=== PATIENT | female | born 1960 | race Caucasian/White ===

== ENCOUNTER → 2018-05-06 | Outpatient (CLI) | payer MEDICARE, MEDICAID ==
[~2018-05-06] MED LIST: ALBUTEROL0.83 MG/ML IH; ALBUTEROL1.25 MG/3 IH; BONIVA150 MG PO; BONIVA2.5 MG PO; CALCIUM 600MG+D1 TAB PO; DALIRESP500 MCG PO; DIFLUCAN 100MG100 MG PO; FISH OIL500 MG PO; LEVOXYL0.088 MG PO; MOBIC15 MG PO; MULTI VITAMINS1 TAB PO; MULTIPLE VITAMI1 CAP PO; NEXIUM 40MG40 MG PO; PRIL40 PO; PROAIR HFA0.09 MG/AC IH; RT ADVAIR 228 DISKUS IH; RT SPIRIVA18 MCG IH; SINGULAIR 110 MG/TAB PO; THEO-24 20200 MG/CAP PO; XANAX .25M0.25 MG/TA PO; ZOCOR 20MG20 MG PO
[2018-05-06 12:39] LABS: CALCIUM 9.2 mg/dL (8.4-10.2); CREATININE, serum 0.73 mg/dL (0.52-1.25); POTASSIUM 3.7 mmol/L (3.4-5.0)
== END ==
LOC: COL.LAB 12:03
PROVIDERS: Internal Medicine Pulmonary Disease
DX: J44.9 Chronic obstructive pulmonary disease, unspecified (principal)

== ENCOUNTER 2018-08-09 13:42 | Emergency (ER) | payer MEDICARE, MEDICAID ==
[~2018-08-09] VITALS: Ht 162.6 cm; Wt 68.2 kg
[2018-08-09 15:03] LABS: BASO # 0.1 (0.0-0.2); BASO % 0.6 % (0.0-2.0); EOS # 0.2 (0.0-0.7); EOS % 1.1 % (0-4.0); GRAN # 12.9 (1.4-6.5); HEMATOCRIT 38.2 % (37.0-47.0); HEMOGLOBIN 12.8 g/dl (12.5-16.0); LYMPH # 1.9 (1.2-3.4); LYMPH % 11.6 % (20.0-51.0); MEAN CELL VOLUME 87 fl (80.0-100.0); MEAN CORPUSCULAR HEMOGLOBIN 29 pg (27.0-31.0); MEAN CORPUSCULAR HGB CONC 34 g/dl (33.0-37.0); MEAN PLATELET VOLUME 10.8 fl (7.4-10.4); MONO % 6.3 % (1.7-9.3); PLATELET COUNT 283 K/mm3 (130-400); RED BLOOD COUNT 4.39 M/mm3 (4.10-5.30); REDCELL DISTRIBUTION WIDTH-CV 12.4 % (11.5-14.5)
[2018-08-09] MEDS ORDERED: DALIRESP500 MCG PO (15:05)
[2018-08-09 15:14] LABS: ALBUMIN 4.1 gm/dL (3.5-5.0); BILIRUBIN,TOTAL 0.4 mg/dL (0.0-1.0); CALCIUM 9.1 mg/dL (8.4-10.2); CREATININE, serum 0.81 mg/dL (0.52-1.25); POTASSIUM 3.7 mmol/L (3.4-5.0); TOTAL PROTEIN 7.4 gm/dL (6.4-8.2)
[2018-08-09 16:27] LABS: COLLECTION METHOD CLEAN CATCH
[2018-08-09 16:41] LABS: PH 8 (5-8); SQUAMOUS EPITHELIAL 0-2 /hpf; URINE APPEARANCE Clear; URINE BACTERIA Rare /hpf; URINE BILIRUBIN Negative (NEGATIVE); URINE BLOOD Negative (NEGATIVE); URINE COLOR Yellow; URINE GLUCOSE Negative (NEGATIVE); URINE KETONE Negative (NEGATIVE); URINE LEUKOCYTE ESTERASE Trace (NEGATIVE); URINE NITRATE Negative (NEGATIVE); URINE PROTEIN(semi-quant) Negative (NEGATIVE); URINE RBC 0-2 /hpf; URINE UROBILINOGEN Negative (NEGATIVE)
[2018-08-09 17:09] VITALS: TEMP 99.2
[2018-08-09] MEDS ORDERED: LEVAQUIN 750MG750 M1 PO (18:05)
[2018-08-09] MEDS ORDERED: NORCO 325 MG-51 TAB PO (18:59)
[2018-08-09 19:25] VITALS: BP 119/63; PULSE 90
== END 2018-08-09 19:25 | disposition home or self-care (01) ==
LOC: COL.ER 13:42
PROVIDERS: Physician Assistant
DX: J44.9 Chronic obstructive pulmonary disease, unspecified (principal); J18.9 Pneumonia, unspecified organism; Z79.51 Long term (current) use of inhaled steroids; Z87.891 Personal history of nicotine dependence; Z88.0 Allergy status to penicillin; Z98.51 Tubal ligation status
CPT/HCPCS: J1100; J1956; J3010; J7030; J7040

== ENCOUNTER 2018-09-30 10:13 | Day surgery (SDC) | payer MEDICARE, MEDICAID ==
[~2018-09-30] VITALS: Ht 162.7 cm; Wt 68.2 kg
[2018-09-30] VITALS (10 sets, daily range): BP systolic 121–154; BP diastolic 48–78; PULSE 71–81; TEMP 98.4
[~2018-09-30 10:13] MED LIST changes: -00186-0370-20 IH; -ASPIRIN E.C. 8181 MG PO; -CENTRUM SILVER1 CTB PO; -PROBIOTIC FORMU1 CAP PO
[2018-09-30] MEDS ORDERED: 00186-0370-20 IH (10:25)
[2018-09-30] MEDS ORDERED: CENTRUM SILVER1 CTB PO (10:25)
[2018-09-30] MEDS ORDERED: ASPIRIN E.C. 8181 MG PO (10:26)
[2018-09-30] MEDS ORDERED: PROBIOTIC FORMU1 CAP PO (10:26)
[2018-09-30 10:59] LABS: HEMATOCRIT 37.9 % (37.0-47.0); HEMOGLOBIN 12.8 g/dl (12.5-16.0); MEAN CELL VOLUME 88 fl (80.0-100.0); MEAN CORPUSCULAR HEMOGLOBIN 30 pg (27.0-31.0); MEAN CORPUSCULAR HGB CONC 34 g/dl (33.0-37.0); MEAN PLATELET VOLUME 10.4 fl (7.4-10.4); PLATELET COUNT 274 K/mm3 (130-400); RED BLOOD COUNT 4.31 M/mm3 (4.10-5.30); REDCELL DISTRIBUTION WIDTH-CV 12.4 % (11.5-14.5)
[2018-09-30 11:00] LABS: INR 0.9 (0.8-3.0); PROTHROMBIN TIME 10.7 SECONDS (9.7-12.8)
[2018-09-30 11:16] LABS: CALCIUM 9.5 mg/dL (8.4-10.2); CREATININE, serum 0.69 mg/dL (0.52-1.25); MAGNESIUM 1.8 mg/dL (1.6-2.3); POTASSIUM 3.7 mmol/L (3.4-5.0)
== END 2018-09-30 16:09 | disposition home or self-care (01) ==
LOC: COL.CAR 10:13
PROVIDERS: Internal Medicine Cardiovascular Disease
DX: I25.118 Atherosclerotic heart disease of native coronary artery with other forms of angina pectoris (principal); J44.9 Chronic obstructive pulmonary disease, unspecified; I10 Essential (primary) hypertension; E03.9 Hypothyroidism, unspecified; E78.5 Hyperlipidemia, unspecified; Z79.899 Other long term (current) drug therapy; Z87.891 Personal history of nicotine dependence; Z99.81 Dependence on supplemental oxygen
CPT/HCPCS: J1644; J2250; J3010; Q9967

== ENCOUNTER → 2018-09-30 | Outpatient (CLI) | payer MEDICARE, MEDICAID ==
[~2018-09-30] MED LIST changes: +00186-0370-20 IH; +ASPIRIN E.C. 8181 MG PO; +CENTRUM SILVER1 CTB PO; +LEVAQUIN 750MG750 M1 PO; +NORCO 325 MG-51 TAB PO; +PROBIOTIC FORMU1 CAP PO
== END ==
LOC: COL.LAB 15:56
DX: J40 Bronchitis, not specified as acute or chronic (principal)

== ENCOUNTER → 2018-11-11 | Outpatient (CLI) | payer MEDICARE, MEDICAID ==
[~2018-11-11] MED LIST changes: +00186-0370-20 IH; +ASPIRIN E.C. 8181 MG PO; +CENTRUM SILVER1 CTB PO; +PROBIOTIC FORMU1 CAP PO
== END ==
LOC: COL.LAB 10:44
PROVIDERS: Internal Medicine Pulmonary Disease
DX: J44.9 Chronic obstructive pulmonary disease, unspecified (principal)

== ENCOUNTER → 2019-11-10 | Outpatient (CLI) | payer MEDICARE, MEDICAID ==
[~2019-11-10] MED LIST changes: +CALCIUM 600-D 61 TAB PO; +EPA FISH OIL1 SGL PO; +MAG-OX 400400 MG/TAB PO; +MUCINEX1200 MG PO; +NATURAL E400 IU PO; +TYLENOL 500MG500 MG PO
[2019-11-10 10:07] LABS: BASO # 0.1 (0.0-0.2); BASO % 0.6 % (0.0-2.0); EOS % 0.1 % (0-4.0); GRAN # 6.7 (1.4-6.5); HEMATOCRIT 42.5 % (37.0-47.0); LYMPH # 1.3 (1.2-3.4); LYMPH % 15.5 % (20.0-51.0); MEAN CELL VOLUME 93 fl (80.0-100.0); MEAN CORPUSCULAR HEMOGLOBIN 31 pg (27.0-31.0); MEAN CORPUSCULAR HGB CONC 33 g/dl (33.0-37.0); MEAN PLATELET VOLUME 10.8 fl (7.4-10.4); MONO # 0.5 (0.1-0.6); MONO % 5.3 % (1.7-9.3); PLATELET COUNT 286 K/mm3 (130-400); RED BLOOD COUNT 4.59 M/mm3 (4.10-5.30); REDCELL DISTRIBUTION WIDTH-CV 12.7 % (11.5-14.5)
[2019-11-10 10:35] LABS: CALCIUM 9.6 mg/dL (8.4-10.2); CREATININE, serum 0.65 (0.52-1.25); POTASSIUM 3.8 mmol/L (3.4-5.0)
== END ==
LOC: COL.LAB 09:23
PROVIDERS: Internal Medicine Pulmonary Disease
DX: R06.02 Shortness of breath (principal)

== ENCOUNTER 2020-08-06 12:18 | Observation (INO) | payer MEDICARE, MEDICAID ==
[~2020-08-06] VITALS: Ht 165.1 cm; Wt 58.2 kg
[2020-08-06] MEDS ORDERED: VITAMIN D31000 IU PO (12:40)
[2020-08-06] MEDS ORDERED: NAC600 MG PO (12:41)
[2020-08-06] MEDS ORDERED: ZITHROMAX500 M2 PO (12:42)
[2020-08-06] MEDS ORDERED: PREDNISONE20 MG PO (12:42)
[2020-08-06] MEDS ORDERED: SYNTHROID0.05 MG/TA PO (12:43)
[2020-08-06] MEDS ORDERED: INCRUSE EL62.5 MCG/A IH (12:44)
[2020-08-06] MEDS ORDERED: ASPIRIN 81M81 MG/TA2 PO (12:45)
[2020-08-06] MEDS ORDERED: CRESTOR20 MG PO (12:45)
[2020-08-06 13:42] LABS: BASO # 0.1 (0.0-0.2); BASO % 0.4 % (0.0-2.0); EOS % 0.1 % (0-4.0); GRAN # 8.3 (1.4-6.5); GRAN % 73.7 % (42.2-75.2); HEMATOCRIT 41.7 % (37.0-47.0); HEMOGLOBIN 14.6 g/dl (12.5-16.0); LYMPH # 1.8 (1.2-3.4); LYMPH % 15.9 % (20.0-51.0); MEAN CELL VOLUME 90 fl (80.0-100.0); MEAN CORPUSCULAR HEMOGLOBIN 31 pg (27.0-31.0); MEAN CORPUSCULAR HGB CONC 35 g/dl (33.0-37.0); MEAN PLATELET VOLUME 10.4 fl (7.4-10.4); MONO # 1.1 (0.1-0.6); MONO % 9.4 % (1.7-9.3); PLATELET COUNT 413 K/mm3 (130-400); RED BLOOD COUNT 4.66 M/mm3 (4.10-5.30); REDCELL DISTRIBUTION WIDTH-CV 11.7 % (11.5-14.5)
[2020-08-06 13:58] LABS: ALBUMIN 4.9 gm/dL (3.5-5.0); BILIRUBIN,TOTAL 0.4 mg/dL (0.0-1.0); CALCIUM 9.5 mg/dL (8.4-10.2); CREATININE, serum 0.54 (0.52-1.25); POTASSIUM 3.7 mmol/L (3.4-5.0); TOTAL PROTEIN 8.4 gm/dL (6.4-8.2)
[2020-08-06 16:44] VITALS: BP 148/75; PULSE 110; TEMP 98.2
--- NOTE | 2020-08-06 19:07 | NUR ---
Patient arrived to floor from ED via bed. Patient is alert and oriented, answers questions appropriately. Chest tube to right upper chest to water seal and 20mmHg continuous suction per order. Patient c/o pain, called surgeon for orders. Patient denies further needs at this time, call light within reach.
[2020-08-06 19:33] VITALS: BP 136/66; PULSE 93; TEMP 97.8
--- NOTE | 2020-08-06 20:00 | NUR ---
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 Assessment complete. A&Ox3. VS stable. C/O pain to chest-rating 6/10 on pain scale-described as sharp pain with breathing. Hydrocodone given per dr order. Denies nausea/shortness of breath. Chest tube to right chest to 20mm continuous suction. Plan of care discussed for this shift to include pain control/calling for needs. Verbalizes understanding. Call light in reach. Will monitor.
--- NOTE | 2020-08-06 20:30 | NUR ---
C/O pain to right chest-rating 7/10 described as constant ache with sharp intermittent pains. Hydrocodone given per dr order. Will monitor.
[2020-08-06 23:06] VITALS: BP 147/72; PULSE 81; TEMP 97.3
--- NOTE | 2020-08-06 23:21 | NUR ---
Up to bedside commode with one assist. Voided without difficulty. C/O pain to chest tube/right side-rating pain 7/10 on pain scale-described as constant ache with intermittent sharp pains. Dilaudid given per dr order. WIll continue to monitor.
[2020-08-07 04:00] VITALS: BP 142/65; PULSE 72; TEMP 97.9
--- NOTE | 2020-08-07 05:24 | NUR ---
Rested off and on this shift. Dry seal chest tube remained at 20mm of suction-continuous. VS remained stable. Rating pain 7/10 to right chest described as constant ache with intermittent throbbing. Hydrocodone given per dr order. Sitting on side of bed. Call light in reach. Will monitor.
[2020-08-07 09:29] VITALS: BP 143/82; PULSE 82; TEMP 98.5
--- NOTE | 2020-08-07 10:16 | NUR ---
JAYDE met with the patient to discuss discharge plan. The patient lives in [place] with her , Aris (ph#[phone]). She reports independence with ADLs and does not use any assistive devices. She has continuous home oyxgen from [facility]. The patient's primary care provider is Alejandra Alberto APRN at [facility] in [place] and she receives her medications at the [facility] in [place]. She reports no difficulties obtaining her meds. The patient does not have a DPOA-HC in EMR, but she state that she does have one completed and that it designates her . The patient plans to return home with her upon discharge. JAYDE then contacted and reviewed the d/c plan with the patient's , Aris. Aris is in agreement with the patient returning back home with him and did not have any concerns for SW. No additional needs at this time.
--- NOTE | 2020-08-07 10:30 | NUR ---
Resumed care and recieved report from Elva GENTILE. Chest tube converted to water seal. Patient is resting in bed and states her pain is getting better.
[2020-08-07 11:51] VITALS: BP 160/66; PULSE 80; TEMP 97.6
--- NOTE | 2020-08-07 14:29 | NUR ---
Patient complained of being in pain and requested medication. I gave her 1 tab of hydrocodone. Will reassess.
[2020-08-07 16:52] VITALS: BP 135/69; PULSE 68; TEMP 98.1
--- NOTE | 2020-08-07 18:28 | NUR ---
Patient reports an increase in pain and shortness of breath. She complained that something did not feel right. Notified Dr. Yang and Dr. Gaines. Vitals are stable. We Assessed chest tube. Gave patient a hydrocodone and will continue to monitor.
--- NOTE | 2020-08-07 19:19 | NUR ---
notified again & chest xray orders obtained. Patient feeling slightly better after chest xray. Report to night nurse
[2020-08-07 20:09] VITALS: BP 142/53; PULSE 81; TEMP 97.8
--- NOTE | 2020-08-07 20:34 | NUR ---
Pt assessment completed and documented. Pt sitting up on edge of bed at this time. Pt reports throbbing pain to her right chest that radiates to her right arm and back. States that pain is a 2/10, however worsens when she coughs. Request pain medication when avaiable. IVF infusing per orders to left forearm IV without complications. Chest tube to water seal with red-tinged output. Pt denies any needs/concerns at this time. Call light within reach. Will continue to monitor
[2020-08-07 23:53] VITALS: BP 143/62; PULSE 78; TEMP 98.5
[2020-08-08 03:53] VITALS: BP 147/70; PULSE 79; TEMP 98.2
--- NOTE | 2020-08-08 06:06 | NUR ---
Pt had uneventful night. Rested well overnight. States pain and breathing are somewhat better until she coughs in which the pain returns. PRN pain medication given per orders per pt request. IVF infusing per orders. Pt denies any needs/concerns. Chest tube sealed per orders with no complications. Call light within reach.
--- NOTE | 2020-08-08 06:55 | NUR ---
Report given to SEFERINO Salamanca and SEFERINO Blackmon
[2020-08-08 08:08] VITALS: BP 143/57; PULSE 85; TEMP 97.9
--- NOTE | 2020-08-08 09:23 | NUR ---
Initial visit; Patient thanked Founder / Ceo for looking in on her and offering God's blessings.
--- NOTE | 2020-08-08 09:23 | NUR ---
Patient is sitting up in bed with at bedside. Patient states she is having some discomfort especially when coughing. Patient tolerated breakfast well. Fluids were discontinued.
[2020-08-08 12:15] VITALS: BP 154/61; PULSE 101; TEMP 98.2
--- NOTE | 2020-08-08 13:12 | NUR ---
Dr. Romeo in to see patient. Removed chest tube. Vasaline gauze and tegaderm covering site. Patient tolerated well.
[2020-08-08] MEDS ORDERED: NORCO 325 MG-51 TAB PO (15:10)
[2020-08-08 15:54] VITALS: BP 145/71; PULSE 74; TEMP 98.4
--- NOTE | 2020-08-08 18:55 | NUR ---
Chest x ray looked good. Discharge orders put in. Went over discharge instructions with patient and including activity restrictions and care for the chest tube dressing. Encouraged to call if they had any concerns. Reminded them to make follow up appointment tomorrow. Patient and denied any questions. Patient wheeled out with to go home at 1835 with all her belongings.
== END 2020-08-08 18:35 | disposition home or self-care (01) ==
LOC: COL.ER 12:18 → SURG 15:53
PROVIDERS: Family Medicine; ADMIT Surgery
DX: J93.83 Other pneumothorax (principal); J44.9 Chronic obstructive pulmonary disease, unspecified; Z87.891 Personal history of nicotine dependence; Z98.51 Tubal ligation status; Z87.01 Personal history of pneumonia (recurrent); Z88.0 Allergy status to penicillin; Z79.899 Other long term (current) drug therapy; Z79.82 Long term (current) use of aspirin
CPT/HCPCS: A9284; G0378; J1100; J1170; J2060; J2270; J7120; J7512

== ENCOUNTER 2020-10-20 17:35 | Inpatient (IN) | payer MEDICARE ==
[~2020-10-20] VITALS: Ht 165.1 cm; Wt 60.9 kg
[~2020-10-20 17:35] MED LIST changes: +ASPIRIN 81M81 MG/TA2 PO; +CRESTOR20 MG PO; +INCRUSE EL62.5 MCG/A IH; +NAC600 MG PO; +PREDNISONE20 MG PO; +SYNTHROID0.05 MG/TA PO; +VITAMIN D31000 IU PO; +ZITHROMAX500 M2 PO
[2020-10-20] MEDS ORDERED: 00186-0370-20 IH (20:04)
[2020-10-20] MEDS ORDERED: THEO-DUR 3300 MG/TAB PO (20:04)
[2020-10-20] MEDS ORDERED: SYNTHROID0.05 MG/TA PO (20:05)
[2020-10-20] MEDS ORDERED: DALIRESP500 MCG PO (20:05)
[2020-10-20] MEDS ORDERED: SINGULAIR 110 MG/TAB PO (20:05)
[2020-10-20] MEDS ORDERED: INCRUSE EL62.5 MCG/A IH (20:05)
[2020-10-20] MEDS ORDERED: CRESTOR20 MG PO (20:06)
[2020-10-20 22:21] VITALS: BP 129/70; PULSE 88; TEMP 98.1
[2020-10-20 23:17] LABS: INR 0.9 (0.8-3.0)
[2020-10-20 23:20] LABS: PARTIAL THROMBOPLASTIN TIME 31.6 SECONDS (26.0-37.0)
[2020-10-20 23:30] LABS: C-REACTIVE PROTEIN 1.6 mg/dL (0.0-0.9); MAGNESIUM 2.3 mg/dL (1.6-2.3)
[2020-10-20 23:50] LABS: TROPONIN-I 2.57 ng/mL (0.000-0.035)
[2020-10-20 23:57] VITALS: BP 116/68; PULSE 83; TEMP 98.2
[2020-10-21 00:05] LABS: ARTERIAL BLD GAS O2 SATURATION 97.9 % (92-100); ARTERIAL BLD GAS TCO2 CT 23.8; ARTERIAL BLOOD GAS BASE EXCESS -1.4 (-2-2); ARTERIAL BLOOD GAS HCO3 22.7 meq/L (22-26); ARTERIAL BLOOD GAS PCO2 36.2 mmHg (35-45); ARTERIAL BLOOD GAS PO2 101.9 mmHg (80-100); ARTERIAL BLOOD GAS pH 7.42 (7.35-7.45)
[2020-10-21 03:56] VITALS: BP 118/77; PULSE 89; TEMP 98.3
--- NOTE | 2020-10-21 06:00 | NUR ---
Patient arrived to floor around 2230. She is alert and oriented. She is very anxious about her diagnosis of COVID with history of COPD. Explained the plan of care. A Chidi ORTEZ also spent time with patient explaining everything. She was resting well for most the night. No complaints of pain or nausea. No shortness of breath. IVF's infusing at ordered rate. Reviewed medications that were given. Patient was worried about having allergic reactions. Her is aware that she has been admitted. No other changes at this time. Call light within reach.
[2020-10-21 07:02] LABS: CALCIUM 8.3 mg/dL (8.4-10.2); CREATININE, serum 0.56 (0.52-1.25); POTASSIUM 4.4 mmol/L (3.4-5.0)
[2020-10-21 07:22] LABS: TROPONIN-I 1.77 ng/mL (0.000-0.035)
[2020-10-21 07:35] LABS: BASO # 0.1 (0.0-0.2); BASO % 0.9 % (0.0-2.0); EOS # 0.2 (0.0-0.7); EOS % 2.1 % (0-4.0); GRAN # 4.6 (1.4-6.5); HEMOGLOBIN 12.9 g/dl (12.5-16.0); LYMPH # 1.7 (1.2-3.4); LYMPH % 22.4 % (20.0-51.0); MEAN CELL VOLUME 94 fl (80.0-100.0); MEAN CORPUSCULAR HEMOGLOBIN 32 pg (27.0-31.0); MEAN CORPUSCULAR HGB CONC 34 g/dl (33.0-37.0); MEAN PLATELET VOLUME 11.3 fl (7.4-10.4); MONO # 0.9 (0.1-0.6); MONO % 12.1 % (1.7-9.3); PLATELET COUNT 227 K/mm3 (130-400); RED BLOOD COUNT 4.03 M/mm3 (4.10-5.30); REDCELL DISTRIBUTION WIDTH-CV 13.5 % (11.5-14.5)
[2020-10-21 08:15] VITALS: BP 116/74; PULSE 84; TEMP 97.9
--- NOTE | 2020-10-21 08:15 | NUR ---
Patient sitting on the side of the bed eating breakfast. A&Ox4. VSS 2L NC O2, SOB at dyspnea and exertion. IV CDI, fluids infusing. Denies pain. Droplet/contact precautions in place. No further needs expressed from the patient. Call light within reach
[2020-10-21 11:33] VITALS: BP 128/70; PULSE 93; TEMP 98.4
--- NOTE | 2020-10-21 16:29 | NUR ---
Issuing Operator contacted patient by phone to discuss discharge planning. Patient lives in [place] with her , Aris (ph#[phone]) and sees Alejandra Srivastava APRN at [facility] in [place] for primary care. Patient obtains medications from [facility] in with no difficulties at this time. Patient is on two liters of oxygen at baseline and gets her oxygen from [facility]. Patient does not use any other DME and reports independence with ADLS. Patient reports she has Advance Directives that designate Aris, however she did not bring a copy with her. Patient inquired about if there are any shelters that she can stay at until her 's quarantine is up, as he has also been tested for COVID. SW advised she was not aware of any shelters at this time. SW did contact Maira at [facility] who advised she would speak with patient's provider and then contact patient by phone to go over education on quarantining at home. SW will continue to follow.
[2020-10-21 16:48] VITALS: BP 119/72; PULSE 88; TEMP 98.3
--- NOTE | 2020-10-21 17:50 | NUR ---
Patient sitting on the edge of the bed talking on her cell phone. A&Ox3. VSS 2L NC O2. No reported SOB. Incision site right axillary CDI. Patient denies pain and discomfort. Reporting some anxiety. Doctor aware. No further needs expressed from the patient. Call light within reach
[2020-10-21 19:57] VITALS: BP 120/71; PULSE 88; TEMP 98.3
--- NOTE | 2020-10-21 20:10 | NUR ---
Received report from Hazel. Seen patient awake, sitting on bed. She is alert and oriented. She is on O2 at 2lpm via NC. With INT on right AC. She denies pain. She denies difficulty of breathing. Dressing on her right side chest is clean, dry and intact. Call light within reach.
[2020-10-21 23:59] VITALS: BP 115/66; PULSE 86; TEMP 98.3
[2020-10-22] VITALS (12 sets, daily range): BP systolic 95–130; BP diastolic 55–72; PULSE 87–108; TEMP 98.1–99.1
[2020-10-22 02:17] LABS: ARTERIAL BLD GAS O2 SATURATION 94.8 % (92-100); ARTERIAL BLD GAS TCO2 CT 21.5; ARTERIAL BLOOD GAS BASE EXCESS -2.1 (-2-2); ARTERIAL BLOOD GAS HCO3 20.6 meq/L (22-26); ARTERIAL BLOOD GAS PCO2 29.7 mmHg (35-45); ARTERIAL BLOOD GAS PO2 67.2 mmHg (80-100); ARTERIAL BLOOD GAS pH 7.46 (7.35-7.45)
--- NOTE | 2020-10-22 02:20 | NUR ---
At 0053H, Skyla GENTILE informed this nurse that RT called saying the patient is having left side chest pain and RT already informed Lorri ORTEZ. Upon arriving to his room, patient was in a sitting position in the bed. She was complaining of pain on her left side with pain score of 6-7/10. Lorri ordered Morphine, Troponin, Chest xray and EKG. Vital signs taken, VL=629/56, HR=87, SPO2= 100% on O2 at 2lpm via high flow nasal cannula, Temp=98.2. At 0150H, Troponin result came in at 1.150. Informed Lorri via phone call and updated her patient still with pain. Patient was anxious as well. She is walking in the room hoping the pain would lessen as she moves. RT informed her to sit in bed for her not to exert too much effort. Nitrolgycerine was ordered. At 0151H, BP 106/68. 1 tab nitroglycerine given. After 5 minutes, patient states pain is still there and lessen a little bit. BP taken at 0156H 95/61. Updated Lorri that blood pressure went down after 1st Nitroglycerine. Informed her that patient states whenever she has COPD exacerbation in the past, she can taste the build up of Carbon Dioxide. ABG was ordered by Lorri. At 0217H, Rechecked blood pressure, 108/57. Patient went back to bed and states she feels much better now and pain was less. Updated Lorri via phone call regarding blood pressure and patient feeling much better now with less pain. Also, ABG result came in. She ordered another dose of Morphine 2mg IV and to update her if pain goes back. Called her back again to say that patient refuses the Morphine and says she's fine right now. Call light within reach. Informed patient another lab draws for Troponin will be at 0400H.
--- NOTE | 2020-10-22 02:30 | NUR ---
RT increased O2 to 4lpm due to her ABG results and as ordered by Lorri ORTEZ.
--- NOTE | 2020-10-22 08:30 | NUR ---
Shift assessment complete. Pt sitting up on edge of bed. Reports improvement in chest pain, states no pain noticeable at this time. SOA w/exertion. Sats mid to high 90s on 4L O2. Incision to right side chest covered by dressing and kerlix tape on 3 sides. Site and dressing CDI. INT w/o S/S complication. A&Ox4, heart RRR, lung sounds diminished. Pt up to shower independently. Ate half of breakfast prior to NPO order. PO potassium replacement done with approval from . Call light in reach.
[2020-10-22 09:16] LABS: CALCIUM 8.6 mg/dL (8.4-10.2); CREATININE, serum 0.73 (0.52-1.25); POTASSIUM 3.6 mmol/L (3.4-5.0)
[2020-10-22 09:38] LABS: BASO % 0.4 % (0.0-2.0); EOS # 0.2 (0.0-0.7); EOS % 2.4 % (0-4.0); GRAN # 6.5 (1.4-6.5); GRAN % 81.4 % (42.2-75.2); HEMATOCRIT 38.6 % (37.0-47.0); HEMOGLOBIN 12.7 g/dl (12.5-16.0); LYMPH # 0.5 (1.2-3.4); LYMPH % 5.9 % (20.0-51.0); MEAN CELL VOLUME 96 fl (80.0-100.0); MEAN CORPUSCULAR HEMOGLOBIN 31 pg (27.0-31.0); MEAN CORPUSCULAR HGB CONC 33 g/dl (33.0-37.0); MEAN PLATELET VOLUME 11.6 fl (7.4-10.4); MONO # 0.8 (0.1-0.6); MONO % 9.4 % (1.7-9.3); PLATELET COUNT 217 K/mm3 (130-400); RED BLOOD COUNT 4.04 M/mm3 (4.10-5.30); REDCELL DISTRIBUTION WIDTH-CV 13.6 % (11.5-14.5)
--- NOTE | 2020-10-22 11:50 | NUR ---
Rounded on pt. Pt requested to change sheets independently but became winded before finished and was assisted. Lying down in bed at this time to take a nap. Denies other needs.
--- NOTE | 2020-10-22 17:38 | NUR ---
Serial troponins drawn x2 today. Last draw due at 1830. Pt notified of NPO at midnight for possible cardiac cath tomorrow. Troponins trending down today. On 3L O2 NC with sats stable in mid to high 90s.
--- NOTE | 2020-10-22 18:44 | NUR ---
Attempted to draw labs x2 with minimal blood return, unable to get enough. Lab and second shift supervisor RN notified.
[2020-10-23] VITALS (13 sets, daily range): BP systolic 90–136; BP diastolic 56–84; PULSE 77–106; TEMP 97.8–99.4
--- NOTE | 2020-10-23 00:09 | NUR ---
Individual denied pain and or discomfort. VSS. No s/s distress noted.
--- NOTE | 2020-10-23 15:30 | NUR ---
Patient taken by bed to the slab off mill tender.
--- NOTE | 2020-10-23 15:54 | NUR ---
SEE MERGE DOCUMENTATION FOR MEDICATION ADMINISTRATION TIMES AND INTRA/POST PROCEDURE SEDATION ASSESSMENTS.
--- NOTE | 2020-10-23 16:20 | NUR ---
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 A&Ox4. Right radial site scant drainage. VSS. IV CDI, fluids to gravity. Denies pain and discomfort. Just happy things went well. No further needs expressed from the patient. Call light within reach. VS being monitored
--- NOTE | 2020-10-23 18:07 | NUR ---
Patient sitting up on the edge of the bed eating dinner. Nurse woke patient up to eat. A&Ox4. VSS. IV CDI. Radila band right arm scant drainage, intact. VS being monitored. No reported pain or discomfort. Call light within reach
--- NOTE | 2020-10-23 23:33 | NUR ---
Able to reduced Cath armband by 2ml. no bledding noted.No s/s distress noted.
[2020-10-24] VITALS (7 sets, daily range): BP systolic 106–136; BP diastolic 60–76; PULSE 72–116; TEMP 97.4–100.7
--- NOTE | 2020-10-24 04:03 | NUR ---
Individual noted with temp 100.7 oral, given Tylenol 650mg x's 1.
[2020-10-24 07:05] LABS: BASO % 0.4 % (0.0-2.0); EOS # 0.5 (0.0-0.7); GRAN # 7.9 (1.4-6.5); GRAN % 77.9 % (42.2-75.2); HEMATOCRIT 37.9 % (37.0-47.0); HEMOGLOBIN 12.9 g/dl (12.5-16.0); LYMPH # 0.7 (1.2-3.4); LYMPH % 6.5 % (20.0-51.0); MEAN CELL VOLUME 93 fl (80.0-100.0); MEAN CORPUSCULAR HEMOGLOBIN 32 pg (27.0-31.0); MEAN CORPUSCULAR HGB CONC 34 g/dl (33.0-37.0); MEAN PLATELET VOLUME 11.1 fl (7.4-10.4); MONO % 9.7 % (1.7-9.3); PLATELET COUNT 199 K/mm3 (130-400); RED BLOOD COUNT 4.07 M/mm3 (4.10-5.30); REDCELL DISTRIBUTION WIDTH-CV 13.4 % (11.5-14.5)
[2020-10-24 07:19] LABS: CALCIUM 8.5 mg/dL (8.4-10.2); CREATININE, serum 0.8 (0.52-1.25); POTASSIUM 4.2 mmol/L (3.4-5.0)
--- NOTE | 2020-10-24 08:50 | NUR ---
PT APPEARS VERY ANXIOUS. PT REQUESTED I WALK HER TO THE BATHROOM, I STOOD NEXT TO HER, PT INDEPENDENT W/ STEADY GAIT. URINE SAMPLE OBTAINED FOR LAB A SEND OUT PER THEIR REQUEST. PT SOB AT REST BUT DENIES NEED FOR XANAX. HR 116 AND PULSE OX 95% ON 2L. VITALS TAKEN, MEDICATIONS GIVEN, ASSESSMENT PERFORMED, BREAKFAST BROUGHT IN, NO OTHER NEEDS AT THIS TIME.
[2020-10-24 09:51] LABS: ALBUMIN 3.7 gm/dL (3.5-5.0); BILIRUBIN UNCONJUGATED 0.1 mg/dL (0.0-1.1); BILIRUBIN,DIRECT 0.2 mg/dL (0.0-0.4); BILIRUBIN,TOTAL 0.3 mg/dL (0.0-1.0); TOTAL PROTEIN 6.5 gm/dL (6.4-8.2)
--- NOTE | 2020-10-24 12:22 | NUR ---
PT APPEARS LESS ANXIOUS THAN THIS MORNING, STILL DENIES NEED FOR XANAX. PT USED RESTROOM BEFORE HOOKING UP TO IV. REMDESIVIR RUNNING AT THIS TIME.
--- NOTE | 2020-10-24 17:25 | NUR ---
PT ANXIETY DECREASED DURING THE DAY, PT PAIN DEC THROUGHOUT DAY IN RIBS. PT PLEASANT, STARTED REMDESIVIR TODAY, DINNER BROUGHT IN FOR PT, VITALS REVIEWED, NO OTHER NEEDS.
--- NOTE | 2020-10-24 20:30 | NUR ---
Initial shift assessment done- sitting at edge of bed talking with on the phone-- denies pain at this time- on o2 at 2L/nc, sats 94%, states SOB with exertion, Tele on, requesting Tylenol for overall body aches, pt appears anxious, offered Xanax but patient refused- states it makes her feel sluggish. Pt states she is feeling stuffy/congested and needs her singulair--states it was supposed to be changed to nightime a couple days ago- according to our records she received it this morning- pt does not feel she did- states" I would have recognized the pill"-- states she takes it at night at home. Will call SOCIAL PSYCHOLOGIST to see if we can give another? and make sure we change this to a nightime med
--- NOTE | 2020-10-24 21:30 | NUR ---
HEALTH CARE ADMINISTRATOR called- did change singulair to night but unable to give a dose tonight due to max dosage already given according to our recoeds-- did get order for some mucous relief tabs and will give those at this time-- pt ok with this
[2020-10-25] VITALS (7 sets, daily range): BP systolic 101–119; BP diastolic 61–73; PULSE 86–105; TEMP 97.6–100.6
--- NOTE | 2020-10-25 05:45 | NUR ---
Temp up to 100.6, did not sleep much last night-- Tylenol given x2, o2 at 2L/nc sats 94-95%
[2020-10-25 07:13] LABS: BASO % 0.3 % (0.0-2.0); EOS # 0.2 (0.0-0.7); EOS % 2.1 % (0-4.0); GRAN # 7.3 (1.4-6.5); GRAN % 74.5 % (42.2-75.2); HEMATOCRIT 37.9 % (37.0-47.0); HEMOGLOBIN 12.7 g/dl (12.5-16.0); LYMPH # 1.1 (1.2-3.4); LYMPH % 11.7 % (20.0-51.0); MEAN CELL VOLUME 94 fl (80.0-100.0); MEAN CORPUSCULAR HEMOGLOBIN 32 pg (27.0-31.0); MEAN CORPUSCULAR HGB CONC 34 g/dl (33.0-37.0); MEAN PLATELET VOLUME 11.6 fl (7.4-10.4); MONO # 1.1 (0.1-0.6); MONO % 10.9 % (1.7-9.3); PLATELET COUNT 200 K/mm3 (130-400); RED BLOOD COUNT 4.03 M/mm3 (4.10-5.30); REDCELL DISTRIBUTION WIDTH-CV 13.3 % (11.5-14.5)
[2020-10-25 07:47] LABS: ALBUMIN 3.7 gm/dL (3.5-5.0); BILIRUBIN UNCONJUGATED 0.1 mg/dL (0.0-1.1); BILIRUBIN,DIRECT 0.2 mg/dL (0.0-0.4); BILIRUBIN,TOTAL 0.3 mg/dL (0.0-1.0); CALCIUM 8.2 mg/dL (8.4-10.2); CREATININE, serum 0.76 (0.52-1.25); POTASSIUM 3.6 mmol/L (3.4-5.0); TOTAL PROTEIN 6.5 gm/dL (6.4-8.2)
--- NOTE | 2020-10-25 08:30 | NUR ---
PT APPEARS TO HAVE LABORED BREATHING AT REST, PT REPORTING NAUSEA BUT ATE HALF OF BREAKFAST, PT AOX4, REPORTS PAIN 1/10 ON R SIDE OF RIB CAGE, PT VITALS TAKEN, MEDICATIONS GIVEN, ASSESSMENT PERFORMED, POTASSIUM BROUGHT IN PER POTASSIUM PROTOCOL. NO OTHER NEEDS.
--- NOTE | 2020-10-25 14:32 | NUR ---
PT ASLEEP IN ROOM.
--- NOTE | 2020-10-25 17:10 | NUR ---
pt no longer having nausea or pain at this time, informed her she did have nausea medication prn if it returned. pt vitals stable, still on 2l nc, medications given on shift, pt ate salad and fruit from lunch but nothing else, overall uneventful shift.
--- NOTE | 2020-10-25 17:57 | NUR ---
WHEN STOPPING REMDESIVIR PT REPORTING BLURRY VISION, WEAKNESS, AND LUNGS "FEELING WEIRD". PT HAS RASH ON ABD AND INNER FELICITY AREA NOTED EARLIER, NO CHANGES, DR JAIN NOTIFIED AND ORDERED TO CALL DR. MCLAIN.
--- NOTE | 2020-10-25 18:20 | NUR ---
NOTIFIED DR. MCLAIN OF PT C/O W/ REMDESIVIR. FLORI SAID TO STOP REMDESIVIR. MESSAGE RELAYED TO PT AND PT SAYS SYMPTOMS ARE STARTING TO RESOLVE BUT "I JUST FEEL DRAINED". PT DENIES ITCHING AT THIS TIME.
--- NOTE | 2020-10-25 20:30 | NUR ---
Received report from Judie. Seen patient awake, lying in bed. She is on O2 at 2lpm via NC. She states she doesn't have any blurry vision anymore. She denies pain. Assesment done. Right radial with a little bit of bruising from heart cath. INT on right AC flushes well. Call light within reach.
--- NOTE | 2020-10-25 20:45 | NUR ---
This nurse called Maris WANG that patient's blood glucose is 202mg/dl. She has an order for Accucheck ACHS but Insulin were discontinued already for the past few days. Maris put an order for Insulin low dose.
[2020-10-26 00:32] VITALS: BP 119/69; PULSE 77; TEMP 98.6
[2020-10-26 03:24] VITALS: BP 128/68; PULSE 87; TEMP 98.8
--- NOTE | 2020-10-26 06:12 | NUR ---
Patient had uneventful night. She denies any chest pain. Still on O2 at 2lpm via NC. She expresses her concern that there was a miscommunication on when is she supposed to go home. She states that she wants to go home today and be quarantined with her .
[2020-10-26 08:07] LABS: BASO # 0.1 (0.0-0.2); BASO % 0.4 % (0.0-2.0); EOS # 0.3 (0.0-0.7); EOS % 2.4 % (0-4.0); GRAN # 8.6 (1.4-6.5); GRAN % 72.1 % (42.2-75.2); HEMOGLOBIN 12.7 g/dl (12.5-16.0); LYMPH # 1.7 (1.2-3.4); LYMPH % 14.5 % (20.0-51.0); MEAN CELL VOLUME 93 fl (80.0-100.0); MEAN CORPUSCULAR HEMOGLOBIN 31 pg (27.0-31.0); MEAN CORPUSCULAR HGB CONC 33 g/dl (33.0-37.0); MEAN PLATELET VOLUME 11.4 fl (7.4-10.4); MONO # 1.2 (0.1-0.6); MONO % 10.2 % (1.7-9.3); PLATELET COUNT 222 K/mm3 (130-400); RED BLOOD COUNT 4.09 M/mm3 (4.10-5.30); REDCELL DISTRIBUTION WIDTH-CV 13.3 % (11.5-14.5)
[2020-10-26 08:08] VITALS: BP 124/75; PULSE 92; TEMP 98.9
--- NOTE | 2020-10-26 08:15 | NUR ---
Patient sitting up on the edge of bed eating breakfast. A&Ox4. VSS 2L NC O2. No reported SOB. Denies pain and discomfort. Is hoping to go home today. No further needs expressed from the patient. Call light within reach
[2020-10-26 08:23] LABS: CALCIUM 8.3 mg/dL (8.4-10.2); CREATININE, serum 0.63 (0.52-1.25); POTASSIUM 3.6 mmol/L (3.4-5.0)
[2020-10-26 12:27] VITALS: BP 105/72; PULSE 98; TEMP 98.1
[2020-10-26] MEDS ORDERED: TOPROL XL 25MG25 MG PO (16:14)
[2020-10-26] MEDS ORDERED: LASIX 40MG TABL40 MG PO (16:15)
[2020-10-26] MEDS ORDERED: DECADRON6 MG PO (16:17)
--- NOTE | 2020-10-26 17:25 | NUR ---
Discharge paperwork reviewed with the patient. Patient verbalized an understanding to follow doctors orders. IV removed, tip intact, patient tolerated well. Coban and gauze applied. Patient leaving with medication that was in pharmacy. Covid precautions being followed for discharge. Personal belongings and discharge paperwork with the patient. Patient taken by wheelchair to ER entrance where spouse is picking up. No further needs expressed from the patient
== END 2020-10-26 18:03 | disposition home or self-care (01) | DRG 177 ==
LOC: MEDICAL 17:35
PROVIDERS: Hospitalist; Nurse Practitioner Family; Student in an Organized Health Care Education/Training Program
PROC: XW033E5 Introduction of Remdesivir Anti-infective into Peripheral Vein, Percutaneous Approach, New Technology Group 5 (ICD-10-PCS; principal; 2020-10-20)
PROC: 4A023N7 Measurement of Cardiac Sampling and Pressure, Left Heart, Percutaneous Approach (ICD-10-PCS; 2020-10-23)
PROC: B2111ZZ Fluoroscopy of Multiple Coronary Arteries using Low Osmolar Contrast (ICD-10-PCS; 2020-10-23)
PROC: B2151ZZ Fluoroscopy of Left Heart using Low Osmolar Contrast (ICD-10-PCS; 2020-10-23)
DX: U07.1 COVID-19 (principal); J96.21 Acute and chronic respiratory failure with hypoxia; I21.A1 Myocardial infarction type 2; J12.82 Pneumonia due to coronavirus disease 2019; J44.1 Chronic obstructive pulmonary disease with (acute) exacerbation; J93.83 Other pneumothorax; I50.20 Unspecified systolic (congestive) heart failure; I51.81 Takotsubo syndrome; J44.0 Chronic obstructive pulmonary disease with (acute) lower respiratory infection; E78.5 Hyperlipidemia, unspecified; E03.9 Hypothyroidism, unspecified; I73.9 Peripheral vascular disease, unspecified; R73.9 Hyperglycemia, unspecified; E87.6 Hypokalemia; F41.9 Anxiety disorder, unspecified; Z99.81 Dependence on supplemental oxygen; Z87.891 Personal history of nicotine dependence; Z88.1 Allergy status to other antibiotic agents
CPT/HCPCS: 99223-AI; 99232-AI; 99233-AI; J0696; J1100; J1644; J1650; J1815; J2250; J2270; J3010; J7030; J7050; J8540

== ENCOUNTER → 2021-12-08 | Outpatient (CLI) | payer MEDICARE, MEDICAID ==
[~2021-12-08] MED LIST changes: +DECADRON6 MG PO; +LASIX 40MG TABL40 MG PO; +THEO-DUR 3300 MG/TAB PO; +TOPROL XL 25MG25 MG PO
== END ==
LOC: COL.RAD 12:54
DX: Z12.2 Encounter for screening for malignant neoplasm of respiratory organs (principal); J43.9 Emphysema, unspecified; Z87.891 Personal history of nicotine dependence

== ENCOUNTER 2023-09-24 10:16 | Observation (INO) | payer MEDICARE ==
[2023-09-24] VITALS (7 sets, daily range): BP systolic 133–144; BP diastolic 59–73; PULSE 82–95; TEMP 97.9–98.6
[2023-09-24 11:30] LABS: ALBUMIN 3.3 gm/dL (3.4-4.8); CALCIUM 9.6 mg/dL (8.4-10.2); CREATININE, serum 0.75 mg/dL (0.57-1.11)
[2023-09-24 11:33] LABS: POTASSIUM 2.9 mmol/L (3.5-4.5)
--- NOTE | 2023-09-24 11:37 | NUR ---
1131-NOTIFIED BY LAB OF CRITICAL LAB VALUE. K-2.9 1135-CALL TO Tay TO CRNA FOR LAB VALUE. 1137-CALL TO DR SYLVESTER NOTIFIED OF CLINICAL LAB VALUE. DR SYLVESTER WOULD LIKE A HOSPITALIST CONSULT FOR K REPLACEMENT. CANCEL SURGERY AT THIS TIME.
--- NOTE | 2023-09-24 11:48 | NUR ---
CONSULT ORDERED FOR HOSPITALIST TO SEE PATIENT. CALLED AND LEFT MESSAGE FOR DR URBAN RE: CONSULT.
[2023-09-24] MEDS ORDERED: LEVASOLN PO (12:00)
--- NOTE | 2023-09-24 12:00 | NUR ---
NOTIFIED OF CONSULT. ORDER RECEVIED TO ADD A MAG LEVEL TO PREVIOUS BMP. ORDER PLACED AND LAB CALLED.
[2023-09-24] MEDS ORDERED: SYNTHROID0.075 MG/T PO (12:05)
[2023-09-24] MEDS ORDERED: NORVASC2.5 MG PO (12:05)
[2023-09-24] MEDS ORDERED: INCRUSE EL62.5 MCG/A IH (12:06)
[2023-09-24] MEDS ORDERED: RT ADVAIR 528 DISKUS IH (12:10)
--- NOTE | 2023-09-24 12:45 | NUR ---
1236-REPORT CALLED TO Amarilis MCDONNELL RN. 1245-PT OFF UNIT PER CART ACCOMPANIED BY HER SIGNIFICANT OTHER.
--- NOTE | 2023-09-24 12:53 | NUR ---
PT ADMITTED FROM AMBULATORY SURGERY. PT SCHEDULED TO HAVE A PORT AND PEG TUBE PLACED. LABS SHOWED POTASSIUM LEVEL OF 2.9. VSS. PT WEARS 2LNC AT BASELINE. PT IS AXOX3. PT IS NON TELE. ILANA WANG BEDSIDE. LEFT FA IV PLACED WITH LR RUNNING. PT AMBULATORY TO BED.
[2023-09-24 13:36] LABS: HEMATOCRIT 38.2 % (37.0-47.0); HEMOGLOBIN 12.5 g/dl (12.5-16.0); MEAN CELL VOLUME 86 fl (80.0-100.0); MEAN CORPUSCULAR HEMOGLOBIN 28 pg (27-31); MEAN CORPUSCULAR HGB CONC 33 g/dl (33.0-37.0); MEAN PLATELET VOLUME 11.2 fl (7.4-10.4); PLATELET COUNT 330 K/mm3 (130-400); RED BLOOD COUNT 4.44 M/mm3 (4.10-5.30); REDCELL DISTRIBUTION WIDTH-CV 12.9 % (11.5-14.5)
[2023-09-24] MEDS ORDERED: OXYCODONE H5 MG/5 ML PO (13:50)
[2023-09-24] MEDS ORDERED: CHLORASEPTIC 1180 M3 MM (13:51)
[2023-09-24 14:26] LABS: BASO % 0.8 % (0.0-2.0); EOS % 5.1 % (0.0-4.0); LYMPH % 23.4 % (20.0-51.0); MONO % 14.2 % (1.7-9.3)
--- NOTE | 2023-09-24 16:00 | NUR ---
'S OFFICE CALLED FROM RECORDS PER ILANA WANG. RECORDS RECEIVED VIA FAX AND GIVEN TO ILANA WANG.
--- NOTE | 2023-09-24 16:16 | NUR ---
Product Lead met with patient to discuss discharge planning. Patient lives in [place], [place] at [address] [place] [address] Gretchen Arreola at [facility] in [place] for primary care and obtains medications from [facility] in . Patient uses home oxygen from [facility] in [place]. Patient does not use any DME for ambulation and is independent with ADLS. Patient reports her partner, Aris is her DPOA-HC. Patient is agreeable to have DME supplies for PEG Tube ordered through [facility]. SW discussed Home Health services with patient and she stated she did not feel it was needed at this time. JAYDE collaborated with Mary Farah on this case. RN advised JAYDE that patient will be admitted. JAYDE faxed initial clinicals to [facility]. Sofi advised patient is going to be discharged home today and have her PEG placed Wednesday.
--- NOTE | 2023-09-24 20:16 | NUR ---
Patient assessed at this time, see shift assessment, reports pain to her throat, PS of 3/10, states she doesn't need pain meds at this time, potassium replacement done, remains on 2LPM via nasal prong, denies further needs, call light and personal items within reach, will continue to monitor.
[2023-09-25 00:25] VITALS: BP_SYST 137
[2023-09-25 03:35] VITALS: BP 123/71; PULSE 84; TEMP 98.1
[2023-09-25 05:16] VITALS: BP_SYST 123
[2023-09-25 07:10] LABS: BASO # 0.1 K/mm3 (0.0-0.2); BASO % 1.4 % (0.0-2.0); EOS # 0.3 K/mm3 (0.0-0.7); EOS % 5.6 % (0.0-4.0); GRAN # 2.3 K/mm3 (1.4-6.5); GRAN % 45.8 % (42.2-75.2); HEMOGLOBIN 11.6 g/dl (12.5-16.0); LYMPH # 1.6 K/mm3 (1.2-3.4); LYMPH % 33.1 % (20.0-51.0); MEAN CELL VOLUME 89 fl (80.0-100.0); MEAN CORPUSCULAR HEMOGLOBIN 28 pg (27-31); MEAN CORPUSCULAR HGB CONC 32 g/dl (33.0-37.0); MEAN PLATELET VOLUME 10.3 fl (7.4-10.4); MONO # 0.7 K/mm3 (0.1-0.6); MONO % 13.9 % (1.7-9.3); PLATELET COUNT 349 K/mm3 (130-400); REDCELL DISTRIBUTION WIDTH-CV 13.2 % (11.5-14.5)
[2023-09-25 07:14] LABS: HEMATOCRIT 36.5 % (37.0-47.0)
[2023-09-25 07:45] LABS: CALCIUM 8.8 mg/dL (8.4-10.2); CREATININE, serum 0.66 mg/dL (0.57-1.11); POTASSIUM 4.1 mmol/L (3.5-4.5)
[2023-09-25 07:54] VITALS: BP 145/74; PULSE 81; TEMP 98.3
--- NOTE | 2023-09-25 08:29 | NUR ---
PT RESTING IN BED, WILL DSICARGE LATER TODEAY AND RETURN EARLY NEXT WEEK FOR PROCEEDURE AT THAT TIME. PT IS A/O X4. INDEPENDENT IN ROOM. DENIES NEEDS AT THIS TIME.
[2023-09-25 09:00] VITALS: BP_SYST 145
[2023-09-27] MEDS ORDERED: ALBUTEROL0.83 MG/ML IH (11:37)
[2023-09-27] MEDS ORDERED: HYCET SOLN PO (12:58)
== END 2023-09-25 12:07 | disposition home or self-care (01) ==
LOC: SDCO 10:16 → SURG 12:54 → SDCO 14:00 → SURG 14:01
PROVIDERS: Physician Assistant; ADMIT Surgery
DX: C10.9 Malignant neoplasm of oropharynx, unspecified (principal); J44.9 Chronic obstructive pulmonary disease, unspecified; J96.11 Chronic respiratory failure with hypoxia; E87.6 Hypokalemia; E46 Unspecified protein-calorie malnutrition; I11.0 Hypertensive heart disease with heart failure; I50.20 Unspecified systolic (congestive) heart failure; E78.5 Hyperlipidemia, unspecified; E03.9 Hypothyroidism, unspecified; I73.9 Peripheral vascular disease, unspecified; Z68.1 Body mass index [BMI] 19.9 or less, adult; Z79.899 Other long term (current) drug therapy; Z79.890 Hormone replacement therapy; Z99.81 Dependence on supplemental oxygen; Z87.891 Personal history of nicotine dependence
CPT/HCPCS: A9270; G0378; J0690; J2704; J3010; J3475; J3480; J7120

== ENCOUNTER 2023-10-14 10:16 | Emergency (ER) | payer MEDICARE ==
[~2023-10-14] VITALS: Ht 162.6 cm; Wt 51.4 kg
[~2023-10-14 10:16] MED LIST changes: +CHLORASEPTIC 1180 M3 MM; +HYCET SOLN PO; +LEVASOLN PO; +NORVASC2.5 MG PO; +OXYCODONE H5 MG/5 ML PO; +RT ADVAIR 528 DISKUS IH; +SYNTHROID0.075 MG/T PO
[2023-10-14 10:20] VITALS: TEMP 97.9
[2023-10-14 11:17] LABS: BASO # 0.1 K/mm3 (0.0-0.2); BASO % 0.7 % (0.0-2.0); EOS # 0.5 K/mm3 (0.0-0.7); EOS % 4.1 % (0.0-4.0); GRAN # 8.1 K/mm3 (1.4-6.5); GRAN % 73.5 % (42.2-75.2); HEMATOCRIT 40.1 % (37.0-47.0); HEMOGLOBIN 12.9 g/dl (12.5-16.0); LYMPH # 1.5 K/mm3 (1.2-3.4); LYMPH % 13.4 % (20.0-51.0); MEAN CELL VOLUME 87 fl (80.0-100.0); MEAN CORPUSCULAR HEMOGLOBIN 28 pg (27-31); MEAN CORPUSCULAR HGB CONC 32 g/dl (33.0-37.0); MEAN PLATELET VOLUME 10.3 fl (7.4-10.4); MONO # 0.9 K/mm3 (0.1-0.6); MONO % 7.8 % (1.7-9.3); PLATELET COUNT 434 K/mm3 (130-400); RED BLOOD COUNT 4.59 M/mm3 (4.10-5.30); REDCELL DISTRIBUTION WIDTH-CV 12.8 % (11.5-14.5)
[2023-10-14 11:20] LABS: PROTHROMBIN TIME 11.3 SECONDS (9.7-12.8)
[2023-10-14 11:28] LABS: ALBUMIN 3.4 gm/dL (3.4-4.8); BILIRUBIN,TOTAL 0.4 mg/dL (0.2-1.2); C-REACTIVE PROTEIN 3.2 mg/dL (0.00-0.50); CALCIUM 10.2 mg/dL (8.4-10.2); CREATININE, serum 0.7 mg/dL (0.57-1.11); POTASSIUM 3.6 mmol/L (3.5-4.5); TOTAL PROTEIN 7.4 gm/dL (6.2-8.1)
[2023-10-14 12:30] VITALS: BP 142/66; PULSE 89
== END 2023-10-14 12:47 | disposition home or self-care (01) ==
LOC: COL.ER 10:16
PROVIDERS: Emergency Medicine
DX: J44.9 Chronic obstructive pulmonary disease, unspecified (principal); J96.11 Chronic respiratory failure with hypoxia; Z99.81 Dependence on supplemental oxygen; Z87.891 Personal history of nicotine dependence
CPT/HCPCS: J2405; J7030

== ENCOUNTER → 2023-11-16 | Outpatient (CLI) | payer MEDICARE, MEDICAID ==
[~2023-11-16] MED LIST changes: +ATIVAN 0.50.5 MG/TAB PO; +COMPAZINE 110 MG/TAB PO; +CRESTOR40 MG PO; +DOXYCYCLINE 10100 MG PO; +Gadoterate 15 ML VIAL IV ONE; +INCRUSE EL62.5 MCG/A INH; +LASIX 20MG TABL20 MG PO; +LEXAPRO 5MG5 MG PO; +MAGIC MOUTH PO; +NYAMYC100000 U/G TP; +PROTONIX 40MG T40 MG PO; +ZOFRAN ODT8 MG PO
== END ==
LOC: COL.RAD 10:01
DX: C32.0 Malignant neoplasm of glottis (principal)
CPT/HCPCS: A9575